=== PATIENT | female | born 1965 | race Caucasian/White ===

== ENCOUNTER 2017-07-20 06:43 | Day surgery (SDC) | payer MEDICARE ==
[2017-07-17 10:30] LABS: HEMATOCRIT 42.4 % (36.0-48.0); HEMOGLOBIN 14.4 g/dL (12-16); MCH 32.1 pg (26.0-34.0); MCV 94.4 fL (80.0-100.0); MEAN PLATELET VOLUME 9.8 fL (7.4-10.4); RBC 4.49 10x6/uL (4.00-5.40); RDW 12.4 % (11.5-14.5); WBC 6.5 10x3/uL (4.8-10.8)
[~2017-07-20] VITALS: Ht 172.7 cm; Wt 61.2 kg
--- NOTE | ~2017-07-20 | OP ---
PATIENT NAME: JOSH BOYLE MEDICAL RECORD: [id number] LOCATION:[facility] ADMISSION DATE: SURGEON: JOHNNY MEDRANO MD DATE OF OPERATION: 07/20/2017 PREOPERATIVE DIAGNOSIS: Right distal radius fracture, intraarticular displacement - volar Marshall's. POSTOPERATIVE DIAGNOSIS: Right distal radius fracture, intraarticular displacement - volar Marshall's. PROCEDURE: Open reduction and internal fixation of right distal radius fracture. SURGEON: Johnny Medrano MD ANESTHESIA: General. INTRAOPERATIVE COMPLICATIONS: None. SUMMARY OF PATHOLOGIC FINDINGS: Consistent with the preoperative radiographs, the patient had a volar Marshall's fracture with a slight lunate punch injury. IMPLANTS USED: Arthrex volar plate system. OPERATIVE SUMMARY IN DETAIL: After obtaining the appropriate preoperative orthopedic surgery consent as well as anesthetic consultation, evaluation and clearance, the patient was brought to the operating room and placed on operating table in supine position. After general laryngeal mask airway was administered, tourniquet was placed about the proximal aspect of the right upper extremity. Right upper extremity was then prepped and draped in a routine sterile fashion. The arm was elevated and exsanguinated, tourniquet inflated to 250 mmHg. Curvilinear incision was made from the palmar aspect up to forearm in keeping with Jayden's volar approach. Formal carpal tunnel release was performed. The median nerve was identified and retracted safely to the rest of the case. Dissection was taken down to the fracture itself. The fracture was reduced under fluoroscopic guidance and the Arthrex right narrow plate was applied, combination of compression and locking screws were utilized to hold the volar fragments in an anatomic position. Final radiographs were taken. AP and lateral planes submitted to radiologist for final review. Wound was then copiously irrigated and closed with 2-0 Vicryl followed by #4-0 Prolene in running fashion. Sterile dressings were applied. Tourniquet was deflated. Volar splint was applied. The patient was awakened, taken to recovery room in stable condition. All final needle, instrument and sponge counts were correct. TRANSINT:[id number] Voice Confirmation ID: [id number] DOCUMENT ID: [id number] OPERATIVE REPORT [id number] MON[place]NAATILIOJOSH MARCELA RAMOS, JOHNNY PRIEST at 1207 CC: [id number] DICTATION DATE: 07/20/171912 BLASTING ENTRY SPECIALIST: 07/20/172051 [facility] 07/20/17 [facility] [address] [id number]
[2017-07-20 14:15] VITALS: BP 110/58; Ht 172.7 cm; Wt 61.2 kg
[2017-07-20] MEDS ORDERED: HYDROCODONE-APA1 TAB PO (19:15)
== END 2017-07-20 21:20 | disposition home or self-care (01) ==
LOC: D.OPS 06:43 → D.PAN 15:30 → D.OPS 15:30 → D.MS 19:59 → D.OPS 21:20
PROVIDERS: Anesthesiology
DX: S52.561A Barton's fracture of right radius, initial encounter for closed fracture (principal); X58.XXXA Exposure to other specified factors, initial encounter; Z01.812 Encounter for preprocedural laboratory examination